=== PATIENT | male | born 1955 | race Caucasian/White ===

== ENCOUNTER 2016-12-23 13:15 | Observation (INO) | payer OTHER ==
[2016-12-23 13:25] VITALS: BP 149/89; PULSE 75; RESP 18; TEMP 97.7; O2SAT 97
[2016-12-23] MEDS ORDERED: ATEN50TA PO ×2 (13:29→15:56)
[2016-12-23] MEDS ORDERED: METF1000 PO ×2 (13:29→15:56)
[2016-12-23] MEDS ORDERED: GLIP10TA6 PO ×2 (13:29→15:56)
[2016-12-23] MEDS ORDERED: SODIUM CHLORIDE 0.9% FLUSH 10 ML FLUSH IVF PRN ×2 (13:30→15:15)
[2016-12-23 13:31] VITALS: O2SAT 97
[2016-12-23 13:59] LABS: APTT (PATIENT) 25.2 SEC (24.3-30.1); CHLORIDE 101 MEQ/L (98-107); INTERNATIONAL NORMALIZED RATIO 0.9 RATIO; PROTHROMBIN TIME - PATIENT 10.1 SEC (9.8-11.6); SODIUM (NA) 137 MEQ/L (136-145)
[2016-12-23 14:03] LABS: ANION GAP 8 MEQ/L (5-15); BICARBONATE 28.4 MEQ/L (21.0-32.0); BLOOD UREA NITROGEN 20 MG/DL (7-18)
[2016-12-23 14:04] LABS: AUTOMATED NEUTROPHIL # 5.6 TH/MM3 (1.8-7.7); BASOPHIL # 0.1 TH/MM3 (0-0.2); BASOPHIL % 0.8 % (0.0-2.0); EOSINOPHIL # 0.3 TH/MM3 (0-0.4); EOSINOPHIL % 3.1 % (0.0-4.0); HEMATOCRIT 41.3 % (39.0-51.0); HEMO FLAGS DIFF FINAL; MEAN CELL VOLUME 83.1 FL (80.0-100.0); MEAN CORPUSCULAR HEMOGLOBIN 27.1 PG (27.0-34.0); MEAN CORPUSCULAR HGB CONC 32.6 % (32.0-36.0); MONO % 11.4 % (0.0-8.0); NEUT % 55.7 % (16.0-70.0); PLATELET COUNT 255 TH/MM3 (150-450); RED BLOOD COUNT 4.97 MIL/MM3 (4.50-5.90); RED CELL DISTRIBUTION WIDTH 14.1 % (11.6-17.2); WHITE BLOOD COUNT 10.2 TH/MM3 (4.0-11.0)
[2016-12-23 14:06] LABS: GLOMERULAR FILTRATION RATE 47 ML/MIN (>89)
[2016-12-23 14:09] LABS: CREATINE KINASE 459 U/L (39-308)
[2016-12-23 14:11] LABS: POTASSIUM 4.7 MEQ/L (3.5-5.1)
--- NOTE | 2016-12-23 14:19 | PD ---
HPI Chief Complaint: Chest Pain Time Seen by Provider: 13:29 Travel History International Travel<30 days: No Contact w/Intl Traveler<30days: No Traveled to known affect area: No History of Present Illness HPI 61 yo M reports generalized fatigue for about 2 months or so. Occasionally he has chest pain. Occasionally he has dyspnea on exertion. He has been sleeping much more than normal. A 20 pound weight gain over the last 2 months is reported. He came into the ER 2/2 epigastric tightness and diaphoresis while walking in [employer]. No CP in ER. PFSH Past Medical History Diabetes: Yes Patient Takes Glucophage: Yes Hypertension: Yes Influenza Vaccination: No Past Surgical History Appendectomy: Yes Social History Alcohol Use: Yes (RARELY) Tobacco Use: No Substance Use: No Allergies-Medications (Allergen,Severity, Reaction): Coded Allergies: Bee Sting (Verified Allergy, Severe, RASH, 12/23/16) Penicillin (Verified Allergy, Severe, RASH, 12/23/16) Reported Meds & Prescriptions Reported Meds & Active Scripts Active Reported Atenolol 50 Mg Tab 50 Mg PO DAILY Metformin (Metformin HCl) 1,000 Mg Tab 1,000 Mg PO BIDPC With meals Glipizide 10 Mg Tab 10 Mg PO BIDAC Take 30 minutes before a meal Review of Systems Except as stated in HPI: all other systems reviewed are Neg Physical Exam Narrative GENERAL: 61 yo M, WNWD SKIN: Warm and dry. HEAD: Atraumatic. Normocephalic. EYES: Pupils equal and round. No scleral icterus. No injection or drainage. ENT: No nasal bleeding or discharge. Mucous membranes pink and moist. NECK: Trachea midline. No JVD. CARDIOVASCULAR: Regular rate and rhythm. RESPIRATORY: No accessory muscle use. Clear to auscultation. Breath sounds equal bilaterally. GASTROINTESTINAL: Abdomen soft, non-tender, nondistended. Hepatic and splenic margins not palpable. MUSCULOSKELETAL: Extremities without clubbing, cyanosis, or edema. No obvious deformities. NEUROLOGICAL: Awake and alert. No obvious cranial nerve deficits. Motor grossly within normal limits. Five out of 5 muscle strength in the arms and legs. Normal speech. PSYCHIATRIC: Appropriate mood and affect; insight and judgment normal. Data Data Last Documented VS Vital Signs Date Time Temp Pulse Resp B/P Pulse Ox O2 Delivery O2 Flow Rate FiO2 12/23/16 13:31 97 12/23/16 13:25 97.7 75 18 149/89 VS reviewed Orders Complete Blood Count With Diff (12/23/16 13:29) Basic Metabolic Panel (Bmp) (12/23/16 13:29) B-Type Natriuretic Peptide (12/23/16:29) Act Partial Throm Time (Ptt) (12/23/16:29) Prothrombin Time / Inr (Pt) (12/23/16 13:29) Ckmb (Isoenzyme) Profile (12/23/16:) Troponin I (12/23/16:29) Iv Access Insert/Monitor (12/23/16:29) Electrocardiogram (12/23/16:) Ecg Monitoring (12/23/16:) Oximetry (12/23/16:) Oxygen Administration (12/23/16:) Chest, Single Ap (12/23/16:29) Sodium Chloride 0.9% Flush (Ns Flush) (12/23/16 13:30) CKMB (12/23/16:30) CKMB% (12/23/16 13:30) Admit Order (Ed Use Only) (12/23/16 ) Outpatient Physical Therapist / Telemetry [email or web address].[email or web address] (12/23/16 15:10) ^ Saline Lock (12/23/16 15:10) Resp Oxygen Yoel C Titrat 1-4 L (12/23/16 ) Notify Dr: Other (12/23/16 15:10) Sodium Chloride 0.9% Flush (Ns Flush) (12/23/16 21:00) Sodium Chloride 0.9% Flush (Ns Flush) (12/23/16 15:15) Labs Laboratory Tests Test 12/23/16 13:30 White Blood Count 10.2 TH/MM3 Red Blood Count 4.97 MIL/MM3 Hemoglobin 13.4 GM/DL Hematocrit 41.3 % Mean Corpuscular Volume 83.1 FL Mean Corpuscular Hemoglobin 27.1 PG Mean Corpuscular Hemoglobin 32.6 % Concent Red Cell Distribution Width 14.1 % Platelet Count 255 TH/MM3 Mean Platelet Volume 8.7 FL Neutrophils (%) (Auto) 55.7 % Lymphocytes (%) (Auto) 29.0 % Monocytes (%) (Auto) 11.4 % Eosinophils (%) (Auto) 3.1 % Basophils (%) (Auto) 0.8 % Neutrophils # (Auto) 5.6 TH/MM3 Lymphocytes # (Auto) 3.0 TH/MM3 Monocytes # (Auto) 1.2 TH/MM3 Eosinophils # (Auto) 0.3 TH/MM3 Basophils # (Auto) 0.1 TH/MM3 CBC Comment DIFF FINAL Differential Comment Prothrombin Time 10.1 SEC Prothromb Time International 0.9 RATIO Ratio Activated Partial 25.2 SEC Thromboplast Time Sodium Level 137 MEQ/L Potassium Level 4.7 MEQ/L Chloride Level 101 MEQ/L Carbon Dioxide Level 28.4 MEQ/L Anion Gap 8 MEQ/L Blood Urea Nitrogen 20 MG/DL Creatinine 1.50 MG/DL Estimat Glomerular Filtration 47 ML/MIN Rate Random Glucose 124 MG/DL Calcium Level 9.5 MG/DL Total Creatine Kinase 459 U/L Creatine Kinase MB 5.8 NG/ML Creatine Kinase MB % 1.3 % Troponin I LESS THAN 0.02 NG/ML B-Type Natriuretic Peptide 5 PG/ML MDM Medical Decision Making Medical Screen Exam Complete: Yes Emergency Medical Condition: Yes Differential Diagnosis NSTEMI, unstable angina, coronary vasospasm, PE, PTX, aortic dissection, pericarditis, myocarditis, endocarditis, PNA, esophageal disease, aneurysm, musculoskeletal etiologies, anxiety, cocaine/sympathomimetic abuse Narrative Course EKG reveals a sinus rhythm with first-degree AV block, left anterior fascicular block, rate 75 CBC & BMP Diagram CBC & BMP Diagram 12/23/16 13:30 Total CK 459 Tn < 0.02 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 Pt agreeable with plan. D/w Dr Hooker Diagnosis Primary Impression: Chest pain Qualified Code: R07.9 - Chest pain, unspecified type Admitting Information Admitting Physician Requests: Observation Lorne Valente MD December 23, 2016 14:19
[2016-12-23 14:24] LABS: CKMB 5.8 NG/ML (0.5-3.6)
--- NOTE | 2016-12-23 15:08 | RADHPO ---
EXAM DATE/TIME: 12/23/2016 14:12 [facility] COMPARISON: No previous studies available for comparison. INDICATIONS : Short of breath MEDICAL HISTORY : None. SURGICAL HISTORY : None. ENCOUNTER: Initial ACUITY: 4 - 6 days PAIN SCORE: 0/10 LOCATION: Bilateral chest FINDINGS: The lungs are under aerated but clear. Pulmonary vascularity normal. Portion of bony skeleton visua lized unremarkable. CONCLUSION: Under aerated, otherwise negative. Alvino Paredes MD FACR on December 23, 2016 at 15:04 Board Certified Radiologist. This report was verified electronically.
[2016-12-23] MEDS ORDERED: DEXTROSE 50% IN WATER 50 ML VIAL(D50) IV PUSH PRN (15:15)
[2016-12-23] MEDS ORDERED: MORPHINE SULFATE 4 MG/ML INJ IV PRN (15:15)
[2016-12-23] MEDS ORDERED: GLUCAGON 1 MG/ML VIAL OTHER PRN (15:15)
[2016-12-23] MEDS ORDERED: ACETAMINOPHEN/HYDROcodone 325 MG/7.5 MG TAB PO PRN (15:15)
[2016-12-23] MEDS ORDERED: SODIUM CHLORIDE 0.9% FLUSH 10 ML FLUSH IV FLUSH PRN (15:15)
[2016-12-23] MEDS ORDERED: ONDANSETRON HCL 4 MG/2 ML VIAL IV PRN (15:15)
[2016-12-23] MEDS ORDERED: NITROGLYCERIN 0.4 MG SL 25 TABS/BTL SL PRN (15:15)
[2016-12-23] MEDS ORDERED: ACETAMINOPHEN 500 MG CPLT PO PRN (15:15)
[2016-12-23] MEDS ORDERED: TEMAZEPAM 15 MG CAP PO PRN (15:15)
[2016-12-23 15:29] VITALS: BP 127/84; PULSE 67; RESP 15; O2SAT 96
[2016-12-23] MEDS ORDERED: DAPA1TAB PO (15:56)
[2016-12-23] MEDS ORDERED: LISI10TA3 PO (15:56)
[2016-12-23] MEDS ORDERED: NOVONP2 SQ (15:56)
[2016-12-23] MEDS ORDERED: FLUO20CA4 PO (15:56)
[2016-12-23] MEDS ORDERED: LOVA40TA PO (15:56)
[2016-12-23] MEDS ORDERED: NOVORP2 SQ (15:56)
--- NOTE | 2016-12-23 15:57 | HHI.HP ---
[facility] Service [facility] Primary Care Physician No Primary Care Physician Admission Diagnosis Chest Pain Diagnoses: Chief Complaint: Chest tightness short of breath, dizziness Travel History International Travel<30 Days: No Contact w/Intl Traveler <30 Da: No Traveled to Known Affected Are: No History of Present Illness 61 years old obese male with history of diabetes mellitus type 2 who is on oral anti-hyperglycemic including metformin and recently started on some type of shot that he doesn't remember the name. Presented to the ED complaining of chest tightness about to 7 out of 10 along with short of breath mostly on exertion, occasional dizziness, reported sweatiness but no nausea or vomiting, no transfer of the pain, no alleviating or exacerbating factor however exertion increased short of breath. Patient is a nonsmoker, he has a family history of coronary artery disease with his sister and brother, his sister of heart attack. No abdominal pain no diarrhea or constipation no dysuria urgency or frequency. Patient reported gaining 20 pounds of weight over the last 3 months since he started the diabetic shot medication. Patient in general poor historian he doesn't seem to be remembering all his medication and he doesn't have a list or to call his to obtain the accurate full medication list. First set of cardiac enzyme showed increased CK and CK-MB but normal troponin, EKG showed sinus rhythm 75 with first-degree AV block with left anterior fascicular block, and LVH Review of Systems All systems reviewed and was positive for what is mentioned in history of present illness otherwise negative Past Family Social History Past Medical History Diabetes mellitus type 2 diagnosed few years ago Hyperlipidemia Obesity Hypertension History of hep C status post treatment Past Surgical History Appendectomy Allergies: Coded Allergies: Bee Sting (Verified Allergy, Severe, RASH, 12/23/16) Penicillin (Verified Allergy, Severe, RASH, 12/23/16) Family History Sister of heart attack, brother with coronary artery disease Social History Drink alcohol occasionally, no tobacco or drug abuse Physical Exam Vital Signs Vital Signs Date Time Temp Pulse Resp B/P Pulse Ox O2 Delivery O2 Flow Rate FiO2 12/23/16 15:29 67 15 127/84 96 12/23/16 13:31 97 12/23/16 13:25 97.7 75 18 149/89 97 Physical Exam GENERAL: This is a well-nourished, obese well-developed patient, in no apparent distress. SKIN: No rashes, warm and dry HEAD: Atraumatic. Normocephalic. EYES: Pupils equal round and reactive. Extraocular motions intact. No scleral icterus. ENT: Nose without bleeding, or drainage, Airway patent. NECK: Trachea midline. Supple CARDIOVASCULAR: Relatively distant sounds, Regular rate and rhythm could not appreciate murmurs, gallops, or rubs. RESPIRATORY: Fair air entry bilaterally. No wheezes, rales, or rhonchi. GASTROINTESTINAL: Abdomen soft, non-tender, nondistended. Positive bowel sounds MUSCULOSKELETAL: Extremities without clubbing, cyanosis, or edema. Pedal pulses appreciated NEUROLOGICAL: Awake and alert. Moves all extremity. Normal speech.no focal neurological deficit Laboratory Laboratory Tests Test 12/23/16 13:30 White Blood Count 10.2 Red Blood Count 4.97 Hemoglobin 13.4 Hematocrit 41.3 Mean Corpuscular Volume 83.1 Mean Corpuscular Hemoglobin 27.1 Mean Corpuscular Hemoglobin 32.6 Concent Red Cell Distribution Width 14.1 Platelet Count 255 Mean Platelet Volume 8.7 Neutrophils (%) (Auto) 55.7 Lymphocytes (%) (Auto) 29.0 Monocytes (%) (Auto) 11.4 Eosinophils (%) (Auto) 3.1 Basophils (%) (Auto) 0.8 Neutrophils # (Auto) 5.6 Lymphocytes # (Auto) 3.0 Monocytes # (Auto) 1.2 Eosinophils # (Auto) 0.3 Basophils # (Auto) 0.1 CBC Comment DIFF FINAL Differential Comment Prothrombin Time 10.1 Prothromb Time International 0.9 Ratio Activated Partial 25.2 Thromboplast Time Sodium Level 137 Potassium Level 4.7 Chloride Level 101 Carbon Dioxide Level 28.4 Anion Gap 8 Blood Urea Nitrogen 20 Creatinine 1.50 Estimat Glomerular Filtration 47 Rate Random Glucose 124 Calcium Level 9.5 Total Creatine Kinase 459 Creatine Kinase MB 5.8 Creatine Kinase MB % 1.3 Troponin I LESS THAN 0.02 B-Type Natriuretic Peptide 5 Result Diagram: 12/23/16 1330 12/23/16 1330 Imaging EKG with sinus, first-degree AV block, left anterior fascicular block with LVH Chest x-ray on the right related otherwise negative Assessment and Plan Assessment and Plan 61 years old male with history of diabetes mellitus hypertension hyperlipidemia resented with Chest tightness with short of breath rule out ACS/unstable angina considering his worsening short of breath as a manifestation of CAD Started on aspirin, heart rate is in the 70s we'll hold on starting beta jocelyn due to fascicular block and AV block, late on getting patient medication list we can resume of heart rate increased, first- degree AV block is not contraindication for beta jocelyn O2, morphine, will give dose of Pravachol, awaiting full medication list Continue cycling cardiac enzyme first set is normal troponin but increased CK and CK-MB If troponins start to increase will start Lovenox full dose Stress test in a.m., consult cardiology, check 2-D echo Rhabdomyolysis: CK 500, iv fluid and monitor level in a.m. Hypertension: Patient on lisinopril 10 mg daily we'll give a dose now been placed on Vasotec as needed Hyperlipidemia patient on Pravachol 40 mg daily we'll give a dose now Diabetes mellitus type 2: We'll hold metformin place on Accu-Chek with insulin sliding scale, patient on NPH insulin 30 units twice a day we'll give half of the dose tonight considering his then to be NPH after midnight for stress test CKD study diabetic nephropathy: Avoid nephrotoxin, iv fluid, monitor BMP, continue lisinopril DVT prophylaxis with heparin Discussed Condition With Patient Gricelda Lucio MD December 23, 2016 15:57
[2016-12-23 16:00] VITALS: BP 117/89; PULSE 63; RESP 18; TEMP 97.7; O2SAT 95
[2016-12-23] MEDS ORDERED: ENALAPRILAT 1.25 MG/ML VIAL IV PUSH PRN (16:00)
[2016-12-23] MEDS: INSULIN ASPART SUPPLEMENTAL SCALE SQ SCH ×2 (16:00→21:00)
[2016-12-23] MEDS ORDERED: INSULIN HUMAN NPH 1,000 UNITS/10 ML VIAL SQ ONE (16:00)
[2016-12-23] MEDS: PRAVASTATIN SOD 40 MG TAB PO SCH (16:45)
[2016-12-23] MEDS: LISINOPRIL 10 MG TAB PO SCH (16:46)
[2016-12-23] MEDS: FLUoxetine HCL 20 MG CAP PO SCH (16:46)
[2016-12-23] MEDS: SODIUM CHLOR 0.9% 1000 ML INJ 1,000 ML IV SCH (16:47)
[2016-12-23 17:16] LABS: ALT (GPT) 55 U/L (12-78); AST (GOT) 42 U/L (15-37)
[2016-12-23 17:18] LABS: TOTAL BILIRUBIN ADULT 0.3 MG/DL (0.2-1.0)
[2016-12-23 17:19] LABS: ALKALINE PHOSPHATASE 95 U/L (45-117)
[2016-12-23 17:48] LABS: INDIRECT BILIRUBIN 0.2 MG/DL (0.0-0.8)
[2016-12-23 20:00] VITALS: BP 107/72; PULSE 59; PULSE 63; RESP 21; TEMP 97.1; O2SAT 97
[2016-12-23 20:21] VITALS: O2SAT 97
[2016-12-23] MEDS: SODIUM CHLORIDE 0.9% FLUSH 10 ML FLUSH IV FLUSH SCH (20:24)
[2016-12-23] MEDS ORDERED: INSULIN HUMAN NPH 1,000 UNITS/10 ML VIAL SQ SCH (21:00)
[2016-12-23] MEDS ORDERED: SODIUM CHLORIDE 0.9% FLUSH 10 ML FLUSH IV FLUSH SCH (21:00)
[2016-12-23] MEDS ORDERED: PRAVASTATIN SOD 40 MG TAB PO SCH (21:22)
[2016-12-23] MEDS: FAMOTIDINE 20 MG TAB PO SCH (21:41)
[2016-12-23] MEDS: HEPARIN SODIUM - SQ 10,000 UNITS/ML VIAL SQ SCH (21:41)
[2016-12-23 22:19] LABS: MAGNESIUM 2.1 MG/DL (1.5-2.5)
[2016-12-23 22:26] LABS: CREATINE KINASE 383 U/L (39-308)
[2016-12-23 22:39] LABS: CKMB 4.4 NG/ML (0.5-3.6)
[2016-12-24] VITALS: BP 116/76; PULSE 56; RESP 21; TEMP 95.7; O2SAT 96
[2016-12-24 01:20] LABS: CREATINE KINASE 408 U/L (39-308)
[2016-12-24 01:33] LABS: CKMB 4.6 NG/ML (0.5-3.6)
[2016-12-24 04:00] VITALS: BP 104/70; PULSE 55; RESP 21; TEMP 96.5; O2SAT 98
[2016-12-24 04:25] LABS: HDL CHOLESTEROL 33.6 MG/DL (40.0-60.0); LDL CHOLESTEROL 63 MG/DL (0-99)
[2016-12-24] MEDS: HEPARIN SODIUM - SQ 10,000 UNITS/ML VIAL SQ SCH ×3 (06:03→21:30)
[2016-12-24] MEDS: SODIUM CHLOR 0.9% 1000 ML INJ 1,000 ML IV SCH ×3 (06:03→21:35)
[2016-12-24] MEDS: INSULIN ASPART SUPPLEMENTAL SCALE SQ SCH ×4 (06:10→21:32)
[2016-12-24 08:00] VITALS: BP 115/82; PULSE 88; RESP 17; TEMP 97.8; O2SAT 99
[2016-12-24 08:28] LABS: HEMOGLOBIN A1a 1.5 %; HEMOGLOBIN A1b 2.6 %; HEMOGLOBIN Ao 79.8 %; HEMOGLOBIN LA1C 2.6 %; HEMOGLOBIN P3 6.5 %
[2016-12-24] MEDS: LISINOPRIL 10 MG TAB PO SCH ×2 (09:00→14:56)
[2016-12-24] MEDS: SODIUM CHLORIDE 0.9% FLUSH 10 ML FLUSH IV FLUSH SCH ×2 (09:00→21:00)
[2016-12-24] MEDS ORDERED: ATENOLOL 50 MG TAB PO SCH (09:00)
[2016-12-24] MEDS: FAMOTIDINE 20 MG TAB PO SCH ×2 (09:06→21:40)
[2016-12-24] MEDS: ASPIRIN 325 MG TAB PO SCH (09:06)
[2016-12-24] MEDS: PRAVASTATIN SOD 40 MG TAB PO SCH (09:06)
[2016-12-24] MEDS: FLUoxetine HCL 20 MG CAP PO SCH (09:06)
[2016-12-24] MEDS ORDERED: REGADENOSON INJ 0.4 MG/5 ML SYR IV ONE (11:46)
--- NOTE | 2016-12-24 12:51 | RADHPO ---
EXAM DATE/TIME: 12/24/2016 11:34 [facility] COMPARISON: No previous studies available for comparison. INDICATIONS : Chest pain and short of breath for 1 day. Abnormal EKG. DOSE: 35 mCi Tc99m Myoview at stress. 11 mCi Tc99m Myoview at rest. 0.4 mg Lexiscan STRESS SYMPTOMS: Short of breath, chest pain and lightheaded. EJECTION FRACTION: 62% MEDICAL HISTORY : Diabetes mellitus type 2. Hypertension. Hypercholesterolemia. SURGICAL HISTORY : None. ENCOUNTER: Initial ACUITY: 1 day PAIN SCALE: 3/10 LOCATION: Bilateral chest TECHNIQUE: The patient underwent pharmacologic stress with infusion of prescribed dose. Continuous ECG tracing was monitored during stress. Gated SPECT imaging was performed after stress and conventional SPECT i maging was performed at rest. The examination was performed on a SPECT/CT scanner, both attenuation and non-corrected datasets were reviewed. FINDINGS: DISTRIBUTION: The maximum perfused segment at stress is in the anterior wall. PERFUSION STUDY: The pattern of perfusion at stress is within normal limits. GATED STUDY: There is intact wall motion and thickening without hypokinetic or dyskinetic segments. CONCLUSION: 1. Unremarkable myocardial perfusion scan. RISK CATEGORY: Low (<1% Annual Mortality Rate) Dane Raymond MD on December 24, 2016 at 12:48 Board Certified Radiologist. This report was verified electronically.
[2016-12-24 14:30] VITALS: BP 130/89; PULSE 72
[2016-12-24 14:36] LABS: BICARBONATE 26.3 MEQ/L (21.0-32.0); POTASSIUM 3.9 MEQ/L (3.5-5.1)
[2016-12-24 15:18] LABS: CKMB 4.1 NG/ML (0.5-3.6)
--- NOTE | 2016-12-24 15:39 | HHI.PR ---
Subjective Remarks Patient sitting on the edge of the bed he had his stress test today which came back negative Patient told me he did have significant short of breath while doing the stress test I discussed with him and his extensively, the had question that in given by their daughter who is an INDUSTRIAL ENG which related to his 2-D echo which is still pending Objective Vitals Vital Signs Date Time Temp Pulse Resp B/P Pulse Ox O2 Delivery O2 Flow Rate FiO2 12/24/16 14:30 72 130/89 12/24/16 08:00 97.8 88 17 115/82 99 12/24/16 04:00 96.5 55 21 104/70 98 12/24/16 00:00 95.7 56 21 116/76 96 12/23/16 20:21 97 21 12/23/16 20:00 97.1 59 21 107/72 97 12/23/16 20:00 63 12/23/16 16:00 97.7 63 18 117/89 95 I/O 12/23/16 12/23/16 12/23/16 12/24/16 12/24/16 12/24/16 07:00 15:00 23:00 07:00 15:00 23:00 Intake Total 744 ml 455 ml 320 ml Balance 744 ml 455 ml 320 ml Intake Oral 240 ml 320 ml IV Total 504 ml 455 ml # Voids 1 3 3 Result Diagram: 12/23/16 1330 12/24/16 1307 Imaging Last Impressions Myocardial Perfusion Scan Nuc Med 12/24/16 1035 Signed Impressions: Service Date/Time: Saturday, December 24, 2016 11:34 - CONCLUSION: 1. Unremarkable myocardial perfusion scan. RISK CATEGORY: Low (<1%% Annual Mortality Rate ) Dane Raymond MD Objective Remarks GENERAL: This is a well-nourished, obese well-developed patient, in no apparent distress. SKIN: No rashes, warm and dry HEAD: Atraumatic. Normocephalic. EYES: Pupils equal round and reactive. Extraocular motions intact. No scleral icterus. ENT: Nose without bleeding, or drainage, Airway patent. NECK: Trachea midline. Supple CARDIOVASCULAR: Relatively distant sounds, Regular rate and rhythm could not appreciate murmurs, gallops, or rubs. RESPIRATORY: Fair air entry bilaterally. No wheezes, rales, or rhonchi. GASTROINTESTINAL: Abdomen soft, non-tender, nondistended. Positive bowel sounds MUSCULOSKELETAL: Extremities without clubbing, cyanosis, or edema. Pedal pulses appreciated NEUROLOGICAL: Awake and alert. Moves all extremity. Normal speech.no focal neurological deficit A/P Assessment and Plan 61 years old male with history of diabetes mellitus hypertension hyperlipidemia resented with Chest tightness with short of breath ruled out ACS/unstable angina with negative nuclear stress test Started on aspirin, heart rate is in the 70s we'll hold on starting beta jocelyn due to fascicular block and AV block, late on getting patient medication list we can resume of heart rate increased, first- degree AV block is not contraindication for beta jocelyn O2, morphine, reviewed his home medication list 3 sets of cardiac enzyme increased CK and CK-MB Negative troponins 3 sets Stress test negative, awaiting 2-D echo We'll check d-dimer and CTA to rule out any underlying PE If all workup came back negative patient need to follow up with chemistry faculty member for PFT and possible sleep study Rhabdomyolysis: CK 500 decreased then went up back to 400, continue iv fluid and monitor level in a.m., will hold pravastatin Hypertension: Patient on lisinopril 10 mg daily we'll give a dose now been placed on Vasotec as needed Hyperlipidemia patient on Pravachol 40 mg daily we'll give a dose now Diabetes mellitus type 2: We'll hold metformin place on Accu-Chek with insulin sliding scale, patient on NPH insulin 30 units twice a day we'll give half of the dose tonight considering his then to be NPH after midnight for stress test, hold oral antihyperglycemic CKD mostly diabetic nephropathy: Avoid nephrotoxin, iv fluid, monitor BMP, continue lisinopril DVT prophylaxis with heparin Gricelda Lucio MD December 24, 2016 15:39
[2016-12-24 17:18] VITALS: O2SAT 99
--- NOTE | 2016-12-24 17:22 | TR ---
Date Performed: 12/24/2016 Time Performed: 12:00:09 DOCTOR: Gabrielle Arevalo DRUG LIST: CLINICAL HISTORY: REASON FOR TEST: REASON FOR ENDING: OBSERVATION: CONCLUSION: Lexiscan stress test was performed under standard four minute protocol. Radionuclid e was injected one minute prior to ending the test. No electrocardiographic abormalities were present to suggest ischemia. Nuclear imaging and interpretation are pending. COMMENTS:
--- NOTE | 2016-12-24 17:25 | EKG ---
Date Performed: 12/24/2016 Time Performed: 00:38:32 PTAGE: 61 years EKG: Sinus bradycardia with 1st degree A-V block Left anterior fascicular block Abnormal ECG PREVIOUS TRACING : 12/23/2016 21.23 Since previous tracing, no significant change noted DOCTOR: Gabrielle Arevalo Interpretating Date/Time 12/24/2016 17:24:55
--- NOTE | 2016-12-24 17:27 | EKG ---
Date Performed: 12/23/2016 Time Performed: 21:23:52 PTAGE: 61 years EKG: Sinus bradycardia with borderline 1st degree A-V block Left anterior fascicular block Ashly rich ECG PREVIOUS TRACING : 12/23/2016 13.16 Since previous tracing, no significant change noted DOCTOR: Gabrielle Arevalo Interpretating Date/Time 12/24/2016 17:26:35
--- NOTE | 2016-12-24 17:31 | EKG ---
Date Performed: 12/23/2016 Time Performed: 13:16:20 PTAGE: 61 years EKG: Sinus rhythm with borderline 1st degree A-V block. Left anterior fascicular block Left ventricular hypertrophy Ab normal ECG NO PREVIOUS TRACING DOCTOR: Gabrielle Arevalo Interpretating Date/Time 12/24/2016 17:28:57
--- NOTE | 2016-12-24 19:01 | EC ---
Study Study Date:12/24/2016 STUDY CONCLUSIONS SUMMARY - Left ventricle: The cavity size was normal. Wall thickness was normal. Systolic function was vigorous. The estimated ejection fraction was in the range of 65% to 70%. Wall motion was normal; there were no regional wall motion abnormalities. - Aortic valve: Valve area: 1.56cm^2(VTI). Valve area: 1.41cm^2 (Vmax). - Mitral valve: Mild regurgitation. If LV function is below 40, please consider prescribing an ACEI or ARB or document rationale for non-use. PROCEDURE DATA STUDY STATUS: Elective. Procedure: Transthoracic echocardiography. Image quality was good. Scanning was performed from the parasternal, apical, and subcostal acoustic windows. Study completion: The patient tolerated the procedure well. Transthoracic echocardiography. M-mode, complete 2D, complete spectral Doppler, and color Doppler. Height: Height: 70in. Weight: Weight: 252.5lb. Body mass index: BMI: 36.3kg/m^2. Body surface area: BSA: 2.31m^2. Patient status: Inpatient. CARDIAC ANATOMY LEFT VENTRICLE: The cavity size was normal. Wall thickness was normal. Systolic function was vigorous. The estimated ejection fraction was in the range of 65% to 70%. Wall motion was normal; there were no regional wall motion abnormalities. AORTIC VALVE: Trileaflet; normal thickness, mildly calcified leaflets. Doppler: Transvalvular velocity was within the normal range. There was no stenosis. No regurgitation. Valve area: 1.56cm^2(VTI). Indexed valve area: 0.68cm^2/m^2 (VTI). Valve area: 1.41cm^2 (Vmax). Indexed valve area: 0.61cm^2/m^2 (Vmax). Mean gradient: 4mm Hg (S). AORTA: Aortic root: The aortic root was normal in size. MITRAL VALVE: Structurally normal valve. Doppler: Transvalvular velocity was within the normal range. There was no evidence for stenosis. Mild regurgitation. LEFT ATRIUM: The atrium was normal in size. RIGHT VENTRICLE: The cavity size was normal. Wall thickness was normal. PULMONIC VALVE: Doppler: Transvalvular velocity was within the normal range. There was no evidence for stenosis. No regurgitation. TRICUSPID VALVE: Structurally normal valve. Doppler: Transvalvular velocity was within the normal range. Trace to mild regurgitation. PULMONARY ARTERY: The main pulmonary artery was normal-sized. Systolic pressure was within the normal range. RIGHT ATRIUM: The atrium was normal in size. PERICARDIUM: There was no pericardial effusion. SYSTEMIC VEINS: Inferior vena cava: The vessel was normal in size. Patient weight: 252.5lb _Ejection fraction:_ 65-75% _Fractional shortening:_ 32% up to 5Kg 5-11.5Kg 11.6-22.9Kg 23-45Kg 45-57Kg Aortic Root 7-13 <17 13-22 17-27 17-27 LA diam 6-13 <23 24-38 33-47 37-40 RVID 10-17 7-15 7-15 7-18 8-17 LVIDd 12-22 <32 24-38 33-47 37-40 LVPW 2-4 3-6 5-7 6-8 7-8 IVS 2-4 3-6 5-7 6-8 7-8 BASIC MEASUREMENTS ADULT NORMAL Left ventricle LV internal dimension, ED, chordal *42.5 mm 43-52 level, PLAX LV internal dimension, ES, chordal 25.4 mm 23-38 level, PLAX Fractional shortening, chordal level, 40 % >29 PLAX LV posterior wall thickness, ED 10.8 mm IVS/LVPW ratio, ED 1 <1.3 Ventricular septum Septal thickness, ED 10.8 mm Aortic valve Leaflet separation *14 mm 15-26 Aorta Root diameter, ED 28 mm Left atrium Anterior-posterior dimension 32 mm Anterior-posterior dimension index 1.39 cm/m^2 <2.2 BASIC MEASUREMENTS ADULT NORMAL Aortic valve Leaflet separation *14 mm 15-26 DOPPLER MEASUREMENTS ADULT NORMAL Aortic valve Peak velocity, S 145 cm/s Mean velocity, S 96.2 cm/s VTI, S 25 cm Mean gradient, S 4 mm Hg Valve area, VTI 1.56 cm^2 Valve area index, VTI 0.68 cm^2/m^2 Valve area, Vmax 1.41 cm^2 Valve area index, Vmax 0.61 cm^2/m^2 Mitral valve Peak E-wave velocity 62.2 cm/s Peak A-wave velocity 70.6 cm/s Deceleration time 218 ms 150-230 Peak E/A ratio 0.9 Pulmonic valve Peak velocity, S 82 cm/s LEGEND: Mean values are shown as u=mean value. Asterisk (*) reed values outside specified normal range. Prepared and signed by Gabrielle Arevalo [id number]
[2016-12-24 20:00] VITALS: BP 129/84; PULSE 71; PULSE 90; RESP 20; TEMP 97.7; O2SAT 96
[2016-12-24] MEDS: INSULIN HUMAN NPH 1,000 UNITS/10 ML VIAL SQ SCH (21:34)
[2016-12-25] VITALS (7 sets, daily range): BP systolic 104–135; BP diastolic 73–88; PULSE 62–97; RESP 19–20; TEMP 96.1–98.2; O2SAT 95–98
[2016-12-25 05:42] LABS: POTASSIUM 3.9 MEQ/L (3.5-5.1)
[2016-12-25 05:48] LABS: BICARBONATE 27.1 MEQ/L (21.0-32.0)
[2016-12-25] MEDS: HEPARIN SODIUM - SQ 10,000 UNITS/ML VIAL SQ SCH ×3 (05:59→21:40)
[2016-12-25] MEDS: SODIUM CHLOR 0.9% 1000 ML INJ 1,000 ML IV SCH (05:59)
[2016-12-25] MEDS: ASPIRIN 325 MG TAB PO SCH (08:31)
[2016-12-25] MEDS: FAMOTIDINE 20 MG TAB PO SCH ×2 (08:31→21:40)
[2016-12-25] MEDS: FLUoxetine HCL 20 MG CAP PO SCH (08:31)
[2016-12-25] MEDS: SODIUM CHLORIDE 0.9% FLUSH 10 ML FLUSH IV FLUSH SCH ×2 (08:32→21:00)
[2016-12-25] MEDS: INSULIN ASPART SUPPLEMENTAL SCALE SQ SCH ×4 (08:35→21:34)
[2016-12-25] MEDS: INSULIN HUMAN NPH 1,000 UNITS/10 ML VIAL SQ SCH ×2 (08:50→21:36)
[2016-12-25] MEDS ORDERED: PRAVASTATIN SOD 20 MG TAB PO SCH (09:00)
--- NOTE | 2016-12-25 14:23 | HHI.PR ---
Subjective Remarks Still has a complaint of SOB with exertion. He has no elements of concern on his stress test or echocardiogram. Cardiac enzymes remained normal through time. Objective Vital Signs Date Time Temp Pulse Resp B/P Pulse Ox O2 Delivery O2 Flow Rate FiO2 12/25/16 12:10 98.2 72 20 119/88 98 12/25/16 08:00 96.5 66 20 121/84 96 12/25/16 04:00 96.1 62 19 104/73 96 12/25/16 00:00 96.5 63 20 114/75 97 12/25/16 00:00 96.5 63 20 114/75 97 12/24/16 20:00 90 12/24/16 20:00 97.7 71 20 129/84 96 12/24/16 17:18 99 21 12/24/16 14:30 72 130/89 I/O 12/24/16 12/24/16 12/24/16 12/25/16 12/25/16 12/25/16 07:00 15:00 23:00 07:00 15:00 23:00 Intake Total 455 ml 320 ml 890 ml 240 ml 100 ml Balance 455 ml 320 ml 890 ml 240 ml 100 ml Intake Oral 320 ml 240 ml 240 ml 100 ml IV Total 455 ml 650 ml # Voids 3 3 2 3 Result Diagram: 12/23/16 1330 12/25/16 0440 Imaging Last Impressions Myocardial Perfusion Scan Nuc Med 12/24/16 1035 Signed Impressions: Service Date/Time: Saturday, December 24, 2016 11:34 - CONCLUSION: 1. Unremarkable myocardial perfusion scan. RISK CATEGORY: Low (<1%% Annual Mortality Rate ) Dane Raymond MD Chest X-Ray 12/23/16 1329 Signed Impressions: Service Date/Time: Friday, December 23, 2016 14:12 - CONCLUSION: Under aerated, otherwise negative. Alvino Paredes MD FACR Objective Remarks GENERAL: NAD, A&Ox3 SKIN: Warm and dry. HEAD: Normocephalic. EYES: No scleral icterus. No injection or drainage. NECK: Supple, trachea midline. No JVD or lymphadenopathy. CARDIOVASCULAR: Regular rate and rhythm without murmurs, gallops, or rubs. RESPIRATORY: Breath sounds equal bilaterally. No accessory muscle use. GASTROINTESTINAL: Abdomen soft, non-tender, nondistended. MUSCULOSKELETAL: No cyanosis, or edema. BACK: Nontender without obvious deformity. No CVA tenderness. Medications and IVs Administered Medications Medications (Trade) Dose Ordered Sig/Simón Route PRN Reason Start Time Stop Time Status Last Admin Dose Admin Famotidine (Pepcid) 20 mg BID PO 12/23/16 21:00 12/25/16 08:31 Aspirin (Aspirin) 325 mg DAILY PO 12/24/16 09:00 12/25/16 08:31 Pravastatin Sodium (Pravachol) 40 mg DAILY PO 12/23/16 15:45 Hold 12/24/16 09:06 Fluoxetine HCl (PROzac) 20 mg DAILY PO 12/23/16 16:00 12/25/16 08:31 Lisinopril (Prinivil) 10 mg DAILY PO 12/23/16 16:00 12/24/16 14:56 Pravastatin Sodium (Pravachol) 40 mg HS PO 12/23/16 21:22 Hold 12/23/16 21:40 Heparin Sodium (Porcine) (Heparin Inj) 5,000 units Q8HR SQ 12/23/16 22:00 12/25/16 12:43 Insulin Human NPH 30 units 30 units BID SQ 12/24/16 21:00 12/25/16 08:50 Sodium Chloride (NS 1000 ml Inj) 1,000 ml @ 75 mls/hr [id number] IV 12/23/16 16:15 12/25/16 05:59 A/P Problem List: (1) Chest pain ICD Code: R07.9 (2) DING (dyspnea on exertion) ICD Code: R06.09 (3) Exercise-induced tachycardia ICD Code: R00.0 (4) DM2 (diabetes mellitus, type 2) ICD Code: E11.9 Assessment and Plan Assessment and Plan 61 year old male admitted with chest tightness and dyspnea on exertion. Dyspnea on Exertion Exercise induced Tachycardia Mild Rhabdomyalysis Evaluate for a pulmonary embolus or interstitial lung disease with a CT angiogram of the chest Check thyroid panel Check CK, CRP, ESR, RF, JERMAINE, Lyme screen DM2 Insulin Sliding Scale Follow blood sugars Diabetic Diet Problem Qualifiers (1) Chest pain: Qualified Code: R07.9 - Chest pain, unspecified type Lorne Maciel MD December 25, 2016 14:23
[2016-12-25 15:39] LABS: CKMB 3.1 NG/ML (0.5-3.6)
[2016-12-25] MEDS ORDERED: IOHEXOL 350 MG/ML 10 ML VIAL (for RAD DIAG) IV ONE (15:41)
--- NOTE | 2016-12-25 16:27 | RADHPO ---
EXAM DATE/TIME: 12/25/2016 15:28 [facility] COMPARISON: No previous studies available for comparison. INDICATIONS : Chest pain with shortness of breath on exertion. IV CONTRAST: 75 cc Omnipaque 350 (iohexol) IV RADIATION DOSE: 21.66 CTDIvol (mGy) MEDICAL HISTORY : Hepatitis C. Hypertension. Diabetes mellitus type 2. SURGICAL HISTORY : Appendectomy. ENCOUNTER: Initial ACUITY: 3 days PAIN SCALE: 8/10 LOCATION: chest TECHNIQUE: Volumetric scanning of the chest was performed using a pulmonary embolism protocol MIP images were re constructed. Using automated exposure control and adjustment of the mA and/or kV according to patien t size, radiation dose was kept as low as reasonably achievable to obtain optimal diagnostic quality images. FINDINGS: Examination of the pulmonary vasculature demonstrates good filling of the main, lobar and segmental b ranches. There are no filling defects to suggest pulmonary embolism. Multiplanar reconstructions are also unremarkable. Examination of the lung riddle demonstrates no evidence of pulmonary nodule. No pleural fluid is iden tified. Examination of the mediastinum demonstrates no abnormally enlarged lymph nodes by CT criteria . No axillary or hilar abnormalities are identified. Coronary artery calcifications are not present. The visualized upper abdomen demonstrates no abnormality. CONCLUSION: 1. No evidence of pulmonary embolism. Dane Raymond MD on December 25, 2016 at 16:23 Board Certified Radiologist. This report was verified electronically.
[2016-12-25] MEDS ORDERED: METFORMIN HOLD POST IV CONTRAST SCH (16:30)
[2016-12-25 17:18] LABS: RHEUMATOID FACTOR TRIGGER LESS THAN 10.0 IU/ML (0.0-14.9)
[2016-12-25 17:25] LABS: FREE T3 2.46 PG/ML (2.18-3.98)
[2016-12-26] VITALS: BP 126/83; PULSE 75; RESP 20; TEMP 97.1; O2SAT 96
[2016-12-26 04:00] VITALS: BP 111/64; PULSE 65; RESP 18; TEMP 97; O2SAT 96
[2016-12-26] MEDS: HEPARIN SODIUM - SQ 10,000 UNITS/ML VIAL SQ SCH (06:37)
[2016-12-26] MEDS: ASPIRIN 325 MG TAB PO SCH (08:39)
[2016-12-26] MEDS: LACTOBACILLUS ACIDOPHILUS TAB PO SCH ×2 (08:39→11:54)
[2016-12-26] MEDS: LISINOPRIL 10 MG TAB PO SCH (08:39)
[2016-12-26] MEDS: FLUoxetine HCL 20 MG CAP PO SCH (08:39)
[2016-12-26] MEDS: FAMOTIDINE 20 MG TAB PO SCH (08:40)
[2016-12-26] MEDS: INSULIN HUMAN NPH 1,000 UNITS/10 ML VIAL SQ SCH (08:41)
[2016-12-26] MEDS: INSULIN ASPART SUPPLEMENTAL SCALE SQ SCH ×2 (08:42→11:56)
[2016-12-26] MEDS: SODIUM CHLORIDE 0.9% FLUSH 10 ML FLUSH IV FLUSH SCH (08:47)
[2016-12-26] MEDS ORDERED: DOXYCYCLINE INJ 100 MG in SODIUM CHLORIDE 0.9% INJ 100 ML IV SCH (09:00)
[2016-12-26 09:08] VITALS: BP 142/91; PULSE 97; RESP 16; TEMP 97; O2SAT 97
[2016-12-26] MEDS: SODIUM CHLOR 0.9% 1000 ML INJ 1,000 ML IV SCH (10:38)
[2016-12-26] MEDS ORDERED: DOXY100C PO ×2 (11:10→11:12)
[2016-12-26] MEDS ORDERED: NAPR250T PO (11:12)
--- NOTE | 2016-12-26 11:25 | HHI.DS ---
Discharge Summary Admission Date December 23, 2016 at 15:15 Discharge Date: December 26, 2016 Admitting Diagnosis Chest Pain (1) DING (dyspnea on exertion) ICD Code: R06.09 Diagnosis: Principal (2) Chest pain ICD Code: R07.9 Diagnosis: Principal (3) Exercise-induced tachycardia ICD Code: R00.0 Diagnosis: Principal (4) Myositis ICD Code: M60.9 Diagnosis: Principal (5) DM2 (diabetes mellitus, type 2) ICD Code: E11.9 Diagnosis: Secondary Procedures none Brief History - From Admission 61 years old obese male with history of diabetes mellitus type 2 who is on oral anti-hyperglycemic including metformin and recently started on some type of shot that he doesn't remember the name. Presented to the ED complaining of chest tightness about to 7 out of 10 along with short of breath mostly on exertion, occasional dizziness, reported sweatiness but no nausea or vomiting, no transfer of the pain, no alleviating or exacerbating factor however exertion increased short of breath. Patient is a nonsmoker, he has a family history of coronary artery disease with his sister and brother, his sister of heart attack. No abdominal pain no diarrhea or constipation no dysuria urgency or frequency. Patient reported gaining 20 pounds of weight over the last 3 months since he started the diabetic shot medication. Patient in general poor historian he doesn't seem to be remembering all his medication and he doesn't have a list or to call his to obtain the accurate full medication list. First set of cardiac enzyme showed increased CK and CK-MB but normal troponin, EKG showed sinus rhythm 75 with first-degree AV block with left anterior fascicular block, and LVH CBC/BMP: 12/23/16 1330 12/25/16 0440 Significant Findings Laboratory Tests Test 12/23/16 12/23/16 12/24/16 12/24/16 13:30 21:50 00:30 13:07 Monocytes (%) (Auto) 11.4 % (0.0-8.0) Monocytes # (Auto) 1.2 TH/MM3 (0-0.9) Blood Urea Nitrogen 20 MG/DL (7-18) Creatinine 1.50 MG/DL (0.60-1.30) Estimat Glomerular Filtration 47 ML/MIN (>89) 56 ML/MIN (>89) Rate Random Glucose 124 MG/DL 207 MG/DL (74-106) (74-106) Aspartate Amino Transf 42 U/L (15-37) (AST/SGOT) Total Creatine Kinase 459 U/L 383 U/L 408 U/L 392 U/L (39-308) (39-308) (39-308) (39-308) Creatine Kinase MB 5.8 NG/ML 4.4 NG/ML 4.6 NG/ML 4.1 NG/ML (0.5-3.6) (0.5-3.6) (0.5-3.6) (0.5-3.6) Troponin I LESS THAN 0.02 LESS THAN 0.02 LESS THAN 0.02 NG/ML NG/ML NG/ML (0.02-0.05) (0.02-0.05) (0.02-0.05) Hemoglobin A1c 8.1 % (4.3-6.0) Triglycerides Level 283 MG/DL (42-150) HDL Cholesterol 33.6 MG/DL (40.0-60.0) Test 12/25/16 12/25/16 04:40 14:47 Blood Urea Nitrogen 19 MG/DL (7-18) Estimat Glomerular Filtration 56 ML/MIN (>89) Rate Random Glucose 146 MG/DL (74-106) Total Creatine Kinase 339 U/L (39-308) C-Reactive Protein 0.62 MG/DL (0.00-0.30) PE at Discharge GENERAL: NAD, A&Ox3 SKIN: Warm and dry. HEAD: Normocephalic. EYES: No scleral icterus. No injection or drainage. NECK: Supple, trachea midline. No JVD or lymphadenopathy. CARDIOVASCULAR: Regular rate and rhythm without murmurs, gallops, or rubs. RESPIRATORY: Breath sounds equal bilaterally. No accessory muscle use. GASTROINTESTINAL: Abdomen soft, non-tender, nondistended. MUSCULOSKELETAL: No cyanosis, or edema. Hospital Course Mr. Merino is a 61-year-old male. He was admitted for chest pain and dyspnea on exertion. Workup included stress test, echocardiogram, and CT angiogram of the chest. All findings of these studies have been within normal limits. He also had a negative thyroid workup. Rheumatoid factor and ESR were within normal limits. Positive findings have included a mildly elevated CRP and an elevated creatinine kinase. Pending studies are JERMAINE and Lymes Disease testing. He is medically stable today for discharge. Life-threatening cardiac or respiratory etiologies have been ruled out. Potential causes remaining a tickborne illness versus polymyalgia rheumatica versus polymyositis versus statin-induced myopathy versus side effects from Prozac. Statin is held. She will be given a trial of doxycycline and anti-inflammatories. If these fail to improve his symptoms he is to follow with his PCP in 2 weeks for possible adjustment of his SSRI to Wellbutrin. Pt Condition on Discharge: Stable Discharge Disposition: Discharge Home Discharge Time: <= 30 minutes Discharge Instructions Follow up Referrals: PCP Follow-up - 2 Weeks New Medications: Doxycycline Hyclate (Doxycycline Hyclate) 100 Mg Cap 100 MG PO BID Infection #10 Ref 0 CAP Naproxen (Naproxen) 250 Mg Tab 250 MG PO BID Inflammation #20 Ref 0 TAB Continued Medications: Atenolol (Atenolol) 50 Mg Tab 50 MG PO DAILY Blood Pressure Management #30 Ref 0 TAB Dapagliflozin (Farxiga) 5 Mg Tab 5 MG PO DAILY Blood Sugar Management #30 Ref 0 TAB Fluoxetine (Fluoxetine) 20 Mg Cap 20 MG PO DAILY #30 Ref 0 CAP Glipizide (Glipizide) 10 Mg Tab 10 MG PO BIDAC Take 30 minutes before a meal Blood Sugar Management #60 Ref 0 TAB Insulin Human NPH Inj (Novolin N Inj) 1,000 Unit/10 Ml Vial 30 UNITS SQ BID Blood Sugar Management #10 Ref 0 ML Insulin Human Regular Inj (Novolin R Inj) 1,000 Unit/10 Ml Vial 15 UNITS SQ TIDAC Blood Sugar Management #10 Ref 0 ML Lisinopril (Lisinopril) 10 Mg Tab 10 MG PO DAILY #30 Ref 0 TAB Metformin (Metformin) 1,000 Mg Tab 1000 MG PO BIDPC With meals Blood Sugar Management #60 Ref 0 TAB Discontinued Medications: Lovastatin (Lovastatin) 40 Mg Tab 40 MG PO HS Cholesterol Management #30 Ref 0 TAB Lorne Maciel MD December 26, 2016 11:25
[2016-12-30 03:50] LABS: LYME DISEASE 18KD IGG BAND NON-REACTIVE (()); LYME DISEASE 23 IGG BAND REACTIVE (()); LYME DISEASE 23KD IGM BAND NON-REACTIVE (()); LYME DISEASE 28KD IGG BAND NON-REACTIVE (()); LYME DISEASE 30KD IGG BAND NON-REACTIVE (()); LYME DISEASE 39 KD IGG BAND NON-REACTIVE (()); LYME DISEASE 39KD IGM BAND NON-REACTIVE (()); LYME DISEASE 41KD IGG BAND REACTIVE (()); LYME DISEASE 41KD IGM BAND NON-REACTIVE (()); LYME DISEASE 45KD IGG BAND NON-REACTIVE (()); LYME DISEASE 58KD IGG BAND NON-REACTIVE (()); LYME DISEASE 66KD IGG BAND NON-REACTIVE (()); LYME DISEASE 93KD IGG BAND NON-REACTIVE (()); LYME DISEASE IGM WB NEGATIVE (())
== END 2016-12-26 12:41 | disposition home or self-care (01) ==
LOC: PHED 13:15 → PHEDA 15:15 → PH3A 16:06 → PH5A 17:11
PROVIDERS: ADMIT Hospitalist; ATTEND Hospitalist
DX: R07.89 Other chest pain (principal); M62.82 Rhabdomyolysis; R00.0 Tachycardia, unspecified; R06.00 Dyspnea, unspecified; M60.9 Myositis, unspecified; R79.82 Elevated C-reactive protein (CRP); R79.89 Other specified abnormal findings of blood chemistry; E78.5 Hyperlipidemia, unspecified; I12.9 Hypertensive chronic kidney disease with stage 1 through stage 4 chronic kidney disease, or unspecified chronic kidney disease; E11.22 Type 2 diabetes mellitus with diabetic chronic kidney disease; N18.9 Chronic kidney disease, unspecified; E78.00 Pure hypercholesterolemia, unspecified; E66.9 Obesity, unspecified; B19.20 Unspecified viral hepatitis C without hepatic coma; Z88.0 Allergy status to penicillin; Z91.030 Bee allergy status; Z68.36 Body mass index [BMI] 36.0-36.9, adult; Z82.49 Family history of ischemic heart disease and other diseases of the circulatory system; Z79.84 Long term (current) use of oral hypoglycemic drugs
CPT/HCPCS: 71010; 71275; 78452; 80048; 80061; 80076; 82550; 82552; 82948; 83036; 83735; 83880; 84436; 84443; 84481; 84484; 85025; 85379; 85610; 85652; 85730; 86038; 86140; 86430; 86617; 93005; 93017; 93306; 99285; A9502; G0378; J1644; J1815; J2785; J7030; Q9967